=== PATIENT | female | born 1995 | race Asian ===

== ENCOUNTER 2021-03-10 15:50 | Emergency (ER) | payer BC ==
[2021-03-10] MEDS ORDERED: Proparacaine 0.5% Opth 15 ML BOT ONE (16:26)
[2021-03-10] MEDS ORDERED: Fluorescein Opthalmic Strip ONE (16:26)
== END 2021-03-10 16:45 | disposition home or self-care (01) ==
LOC: ERS 15:50
DX: T15.02XA Foreign body in cornea, left eye, initial encounter (principal)
CPT/HCPCS: 65220